=== PATIENT | male | born 1975 | race Caucasian/White ===

== ENCOUNTER → 2016-03-31 | Outpatient (REF) | payer BC ==
[~2016-03-31] MED LIST: ACET65TA OR; ASPI1TAB PO; CIPR250T3 PO; CIPR25SS OR; COZA100T OR; DOXY100C PO; FLAG500T OR; IBUP600T26 PO; LISI-538 PO; NORV5TAB OR; ONDA1TAB15 PO; PERC5TAB6 PO; VICO5TAB OR
[2016-03-31 14:35] LABS: VITAMIN B12 LEVEL 580 PG/ML (247-911)
[2016-03-31 14:37] LABS: FOLATE 13.3 NG/ML (>5.4)
[2016-03-31 15:57] LABS: BLOOD UREA NITROGEN 21 MG/DL (7-18); CREATININE FOR GFR 1.19 MG/DL (0.70-1.30); GLOMERULAR FILTRATION RATE > 60.0 (>60)
[2016-04-03 14:17] LABS: Lyme Disease IgG/IgM Antibodie <0.91 ISR (0.00-0.90); Lyme Disease IgM Ab Quantitati <0.80 index (0.00-0.79)
== END ==
LOC: M LABNEURO 09:10
PROVIDERS: ATTEND Psychiatry & Neurology Neurology
DX: N28.9 Disorder of kidney and ureter, unspecified (principal); G35 Multiple sclerosis

== ENCOUNTER → 2016-05-11 | Outpatient (CLI) | payer BC ==
[2016-05-11 14:13] LABS: ANION GAP 8 MEQ/L (8-16); BLOOD UREA NITROGEN 23 MG/DL (7-18); CALCIUM LEVEL 9.1 MG/DL (8.5-10.1); CARBON DIOXIDE LEVEL 27 MEQ/L (21-32); CHLORIDE LEVEL 103 MEQ/L (98-107); CHOLESTEROL LEVEL 191 MG/DL (<200); FREE T4 0.91 NG/DL (0.76-1.46); GLOMERULAR FILTRATION RATE > 60.0 (>60); GLUCOSE, FASTING 89 MG/DL (70-105); POTASSIUM SERUM 4.5 MEQ/L (3.5-5.1); SODIUM LEVEL 138 MEQ/L (136-145); TRIGLYCERIDES LEVEL 240 MG/DL (<150)
== END ==
LOC: M SMT 08:16
PROVIDERS: ATTEND Physician Assistant
DX: I10 Essential (primary) hypertension (principal)

== ENCOUNTER → 2016-05-11 | Outpatient (CLI) | payer BC | LOC: M SMT 08:05 | PROVIDERS: ATTEND Psychiatry & Neurology Neurology | DX: D68.62 Lupus anticoagulant syndrome (principal) ==

== ENCOUNTER → 2016-09-20 | Outpatient (REF) | payer OTHER ==
[~2016-09-20] MED LIST changes: +IBUP-1022 PO; -IBUP600T26 PO; -ONDA1TAB15 PO; +ONDA4TAB5 PO; +PERC5TAB12 PO; -PERC5TAB6 PO
== END ==
LOC: M SFHCLERA 12:20
PROVIDERS: ATTEND Nurse Practitioner Family
DX: R30.0 Dysuria (principal)

== ENCOUNTER → 2016-11-03 | Outpatient (REF) | payer OTHER ==
[2016-11-06 10:32] LABS: VITAMIN E LEVEL 11.3 mg/L (5.3-17.5)
== END ==
LOC: M LABNEURO 11:05
PROVIDERS: ATTEND Psychiatry & Neurology Neurology
DX: G80.1 Spastic diplegic cerebral palsy (principal)

== ENCOUNTER → 2016-11-05 | Outpatient (REF) | payer OTHER | LOC: M LABNEURO 09:17 | PROVIDERS: ATTEND Psychiatry & Neurology Neurology | DX: R25.9 Unspecified abnormal involuntary movements (principal) ==

== ENCOUNTER → 2018-01-28 | Outpatient (REF) | payer BC ==
[2018-01-28 13:28] LABS: BLOOD UREA NITROGEN 22 MG/DL (7-18)
[2018-01-28 13:28] LABS: CREATININE FOR GFR 1.22 MG/DL (0.70-1.30); GLOMERULAR FILTRATION RATE > 60.0 (>60); RHEUMATOID FACTOR QUANT < 10.0 IU/ML (<15.0)
[2018-01-28 13:40] LABS: VITAMIN B12 LEVEL 819 PG/ML
[2018-01-28 13:41] LABS: FOLATE 11.5 NG/ML
[2018-01-28 14:42] LABS: ERYTHROCYTE SEDIMENTATION RATE 17 mm/hr (0-15)
[2018-02-01 12:51] LABS: DRVV SCREEN 43.3 SEC
[2018-02-04 00:41] LABS: ANTINUCLEAR ANTIBODIES DIRECT Negative (Negative); CARDIOLIPIN IGA ANTIBODY <9 APL U/mL (0-11); CARDIOLIPIN IGG ANTIBODY <9 GPL U/mL (0-14); CARDIOLIPIN IGM ANTIBODY <9 MPL U/mL (0-12); CERULOPLASMIN 24.2 mg/dL (16.0-31.0); COPPER PLASMA 103 ug/dL (72-166); VITAMIN B1 LEVEL WHOLE BLOOD 91.9 nmol/L (66.5-200.0); VITAMIN B6,PYRIDOXAL PHOSPHATE 4.9 ug/L (5.3-46.7); VITAMIN E(ALPHA TOCOPHEROL) 6.4 mg/L (7.0-25.1); VITAMIN E(GAMMA TOCOPHEROL) 1.5 mg/L (0.5-5.5)
== END ==
LOC: M LABNEURO 08:09
DX: G35 Multiple sclerosis (principal)
CPT/HCPCS: 82525